=== PATIENT | female | born 1965 | race African-American/Black ===

== ENCOUNTER 2018-09-30 14:25 | Inpatient (IN) | payer OTHER ==
[2018-09-30 15:36] VITALS: BMI 23.4
--- NOTE | 2018-09-30 18:05 | HP ---
CIWA Score Nausea/Vomitin-No Nausea/No Vomiting Muscle Tremors: 4-Moderate,w/Arms Extend (Unrelated to gross shaking of arms, legs, and body) Anxiety: 1-Mildly Anxious Agitation: 4-Moderately Restless Paroxysmal Sweats: 3 (nreased facial moisture) Orientation: 1-Uncertain about Date Tacttile Disturbances: 0-None Auditory Disturbances: 0-None Visual Disturbances: 0-None Headache: 0-None Present CIWA-Ar Total Score: 13 - Admission Criteria [facility]ASAS Guidelines: Admission for Medically Managed Detox: Requires at least one of the followin. CIWA greater than 12 2. Seizures within the past 24 hours 3. Delirium tremens within the past 24 hours 4. Hallucinations within the past 24 hours 5. Acute intervention needed for co occurring medical disorder 6. Acute intervention needed for co occurring psychiatric disorder 7. Severe withdrawal that cannot be handled at a lower level of care (continued vomiting, continued diarrhea, abnormal vital signs) requiring intravenous medication and/or fluids 8. Patient presents the following: CIWA greater than 12 Admission Criteria Met: Admission criteria met Admission ROS [facility] Chief Complaint: Here for alcohol withdrawal. Allergies/Adverse Reactions: Allergies Allergy/AdvReac Type Severity Reaction Status Date / Time lisinopril Allergy Severe Swelling Verified 09/30/18 16:33 History of Present Illness: Here for alcohol detox. Alcohol use began at age 21. Cocaine use began at age 23. Nicotine use began at age 17. Hx: Hodgkins disease, which she states was confirmed by a blood test and for which she states is being given Seroquel and Olanzapine - States exhibited by shakes, twitching, and difficulty walking x 2 years. Being f/u by neurology at [facility]. Hx: HTN, Asthma w/COPD Denies hx seizures, blackouts, or overdoses. Patient Name: Fernanda Yen Date: 1965 Address: [address] [place] [address] Sex: Female Rx Written Rx Dispensed Drug Quantity Days Supply Prescriber Name 05/03/2018 05/04/2018 clonazepam 0.5 mg tablet 30 30 Neema Clark MD 02/03/2018 02/04/2018 clonazepam 0.5 mg tablet 30 30 Beto Lopez MD Patient Name: Fernanda Yen Date: 1965 Address: [address] [place] [id number] Sex: Female Rx Written Rx Dispensed Drug Quantity Days Supply Prescriber Name 02/01/2018 03/11/2018 clonazepam 0.5 mg tablet 30 15 Neema Clark MD 10/26/2017 10/26/2017 clonazepam 0.5 mg tablet 30 30 Neema Clark MD Patient Name: Fernanda Yen Date: 1965 Address: [address] [place] [address] Sex: Female Rx Written Rx Dispensed Drug Quantity Days Supply Prescriber Name 12/16/2017 12/16/2017 clonazepam 0.5 mg tablet 30 30 Jay Marks Exam Limitations: No Limitations - Ebola screening Have you traveled outside of the country in the last 21 days: No Have you had contact with anyone from an Ebola affected area: No Have you been sick,other than usual withdrawal symptoms: No Do you have a fever: No - Review of Systems Constitutional: Diaphoresis, Changes in sleep (States Seroquel puts to sleep) EENT: reports: Blurred Vision, Dental Problems (Dentures - chews and swallows okay) Respiratory: reports: Cough (Cough w/o chest pain or SOB) Cardiac: reports: No Symptoms Reported GI: reports: Indigestion (Occ acid indigestion) : reports: No Symptoms Reported Musculoskeletal: reports: No Symptoms Reported Integumentary: reports: No Symptoms Reported Neuro: reports: Tremors, Unsteady Gait, Other (Shakes, twitches r/t Hodgkins') Endocrine: reports: Increased Thirst Hematology: reports: No Symptoms Reported Psychiatric: reports: Judgement Intact, Agitated, Anxious, Depressed (Denies thoughts of harming self or others) Patient History - Patient Medical History Hx Asthma: Yes Hx Chronic Obstructive Pulmonary Disease (COPD): No Hx Cardiac Disorders: No Hx Hypertension: No Hx Seizures: No Hx Diabetes: No Hx Gastrointestinal Disorders: No Hx Genitourinary Disorders: No Hx Sexually Transmitted Disorders: No Hx Renal Disease (ESRD): No Hx Depression: No Hx Suicide Attempt: No Hx Schizophrenia: No - Patient Surgical History Past Surgical History: No - PPD History Previous Implant?: Yes Documented Results: Negative w/o proof Implanted On Prior [facility] Admission?: No PPD to be Administered?: Yes - Reproductive History Patient : No - Smoking Cessation Smoking history: Current every day smoker Have you smoked in the past 12 months: Yes Aproximately how many cigarettes per day: 4 Hx Chewing Tobacco Use: No Initiated information on smoking cessation: Yes 'Breaking Loose' booklet given: 09/30/18 - Substances Abused Alcohol Route: Oral Frequency: Daily Amount used: 5 shots of stephanie Age of first use: 21 Date of Last Use: 09/30/18 Cocaine Route: Inhalation Frequency: 1-2 times per week Amount used: $25 Age of first use: 23 Date of Last Use: 09/28/18 Admission Physical Exam S - Vital Signs Vital Signs: Vital Signs - 24 hr 09/30/18 15:34 Temperature 98.6 F Pulse Rate 108 H Respiratory 18 Rate Blood Pressure 105/57 L - Physical General Appearance: Yes: Nourished, Appropriately Dressed, Mild Distress, Tremorous, Sweating, Anxious HEENTM: Yes: EOMI, Hearing grossly Normal, Normocephalic, Normal Voice, SAMPSON, Pharynx Normal Respiratory: Yes: Chest Non-Tender, Lungs Clear, Normal Breath Sounds, No Respiratory Distress, Other (Cough productive of clear phglegm) Neck: Yes: No masses,lesions,Nodules, Supple Breast: Yes: Breast Exam Deferred Cardiology: Yes: S1, S2, Tachycardia, Irregular Abdominal: Yes: Non Tender, Soft, Increased Bowel Sounds, Protuberent ( Increased abdominal adiposity) Genitourinary: Yes: Within Normal Limits Back: Yes: Normal Inspection Musculoskeletal: Yes: Other (Generalized spasms and fasciulations of extremities. Gait unsteady) Extremities: Yes: Normal Capillary Refill, Non-Tender, Tremors (Hand and arm tremors, unrelated to gross shaking of arms, legs, and body) Neurological: Yes: Fully Oriented, Alert, Motor Strength 5/5, Other ( Generalized twitches, spasms and fasciulations of extremities.) Integumentary: Yes: Normal Color, Dry, Warm Lymphatic: Yes: Within Normal Limits - Diagnostic (1) Alcohol dependence with uncomplicated withdrawal Current Visit: Yes Status: Acute (2) Nicotine dependence, uncomplicated Current Visit: Yes Status: Chronic Qualifiers: Nicotine product type: cigarettes Qualified Code(s): F17.210 - Nicotine dependence, cigarettes, uncomplicated (3) Hypertension Current Visit: Yes Status: Chronic Qualifiers: Hypertension type: unspecified Qualified Code(s): I10 - Essential (primary ) hypertension (4) COPD with asthma Current Visit: Yes Status: Chronic (5) Fasciculation Current Visit: Yes Status: Chronic Comment: Fasiculations, twitching, and spasm associated with Hodgkin's Disease. Cleared for Admission [facility] - Detox or Rehab [facility] Level of Care: Medically Managed Detox Regimen/Protocol: Librium [facility] Breath Alcohol Content Breath Alcohol Content: 0 Urine Pregancy Test - Result Urine Test Results: Negative- NO Line Present Urine Drug Screen - Results Drug Screen Negative: Yes
[2018-09-30] MEDS ORDERED: chlordiazePOXIDE HCL 25 MG CAPSULE PO PRN (18:50)
[2018-09-30] MEDS ORDERED: NICOTINE POLACRILEX 2 MG GUM BC PRN (18:51)
[2018-09-30] MEDS ORDERED: LOPERAMIDE HCL 2 MG CAPSULE PO PRN (18:51)
[2018-09-30] MEDS ORDERED: ACETAMINOPHEN 325 MG TABLET (FP) PO PRN (18:51)
[2018-09-30] MEDS ORDERED: MAGNESIUM HYDROX 2400MG/30ML ORAL SUSPENSION 30 ML CUP PO PRN (18:51)
[2018-09-30] MEDS ORDERED: P-EPHED 60MG/TRIPROLIDI 2.5MG TABLET PO PRN (18:51)
[2018-09-30] MEDS ORDERED: MAG HYDROX/AL HYDROX/SIMETH 30 ML UNIT-DOSE CUP PO PRN (18:51)
[2018-09-30] MEDS ORDERED: MENTHOL/PHENOL 1 EACH UD MM PRN (18:51)
[2018-09-30] MEDS ORDERED: MAGNESIUM CITRATE 300 ML BOTTLE PO PRN (18:51)
[2018-09-30] MEDS ORDERED: guaiFENesin 200 MG/10 ML 10 ML UNIT-DOSE CUPS PO PRN (18:57)
[2018-09-30] MEDS ORDERED: ALBUTEROL SO4 0.083% IH SOL 2.5 MG/3 ML VIAL.NEB. NEB PRN (18:58)
[2018-09-30] MEDS ORDERED: chlordiazePOXIDE HCL 10 MG CAPSULE PO PRN (19:28)
[2018-09-30] MEDS: BUDESONIDE/FORMETEROL FUMARATE 160/4.5 mcg INHALER IH SCH (21:52)
[2018-09-30] MEDS: THIAMINE HCL 100 MG TABLET (FP) PO SCH (21:55)
[2018-09-30] MEDS ORDERED: MELATONIN 5 MG TABLETS PO PRN (22:00)
[2018-09-30] MEDS: chlordiazePOXIDE HCL 25 MG CAPSULE PO SCH (22:02)
[2018-09-30] MEDS: IBUPROFEN 400 MG TABLET (FP) PO PRN (22:34)
[2018-10-01] MEDS: chlordiazePOXIDE HCL 25 MG CAPSULE PO SCH ×3 (06:04→17:12)
[2018-10-01] MEDS: IBUPROFEN 400 MG TABLET (FP) PO PRN (06:05)
[2018-10-01] MEDS: BUDESONIDE/FORMETEROL FUMARATE 160/4.5 mcg INHALER IH SCH ×2 (11:01→22:15)
[2018-10-01] MEDS: PRENATAL VITAMINS W/ FOLIC ACID TABLET (FP) PO SCH (11:02)
[2018-10-01] MEDS: HYDROCHLOROTHIAZIDE 25 MG TABLET (FP) PO SCH (11:02)
[2018-10-01] MEDS: NICOTINE 14 MG/24 HOURS TOPICAL PATCH TD SCH (11:02)
[2018-10-01 11:10] LABS: MCH 30.8 pg (25.7-33.7); MCHC 34.4 g/dl (32.0-36.0); MEAN CELL VOLUME 89.6 fl (80-96); MEAN PLT VOLUME 8.1 fl (7.5-11.1); PLATELET COUNT 284 K/MM3 (134-434); RBC 4.24 M/mm3 (3.60-5.2); RDW 12.9 % (11.6-15.6); WHITE BLOOD COUNT 5.2 K/mm3 (4.0-10.0)
[2018-10-01 11:30] LABS: ALK PHOS 119 U/L (45-117); ANION GAP 4 MMOL/L (8-16); BILIRUBIN,TOTAL 0.8 mg/dL (0.2-1); BLOOD UREA NITROGEN 15 mg/dL (7-18); CALCIUM 8.7 mg/dL (8.5-10.1); CHLORIDE 104 mmol/L (98-107); CO2 30 mmol/L (21-32); CREATININE 0.7 mg/dL (0.55-1.3); GLUCOSE,RANDOM 87 mg/dL (74-106); POTASSIUM 4.4 mmol/L (3.5-5.1); SGOT/AST 13 U/L (15-37); SGPT/ALT 18 U/L (13-61); SODIUM 138 mmol/L (136-145); TOT PROT 7.2 g/dl (6.4-8.2)
--- NOTE | 2018-10-01 13:24 | EKG ---
Test Reason : Blood Pressure : / mmHG Vent. Rate : 089 BPM Atrial Rate : 089 BPM P-R Int : 126 ms QRS Dur : 074 ms QT Int : 376 ms P-R-T Axes : 052 059 016 degrees QTc Int : 457 ms NORMAL SINUS RHYTHM POSSIBLE LEFT ATRIAL ENLARGEMENT LEFT VENTRICULAR HYPERTROPHY ABNORMAL ECG NO PREVIOUS ECGS AVAILABLE Confirmed by JOSE TORRES MD ([id number]) on 10/01/2018 1:24:30 PM Referred By: Confirmed By:JOSE TORRES MD
--- NOTE | 2018-10-01 14:00 | PN ---
S CIWA - CIWA Score Nausea/Vomitin Muscle Tremors: 2 Anxiety: 2 Agitation: 2 Paroxysmal Sweats: 2 Orientation: 0-Oriented Tacttile Disturbances: 2-Mild Itch/Numbness/Burn Auditory Disturbances: 2-Mild Harshness/Frighten Visual Disturbances: 1-Very Mild Sensitivity Headache: 1-Very Mild CIWA-Ar Total Score: 16 [facility] Progress Note (SOAP) Subjective: Sweats, tremors,interrupted sleep and anxiety Objective: 10/01/18 13:59 Vital Signs 10/01/18 10/01/18 06:00 09:50 Temperature 98.2 F 98.9 F Pulse Rate 88 100 H Respiratory 22 H 19 Rate Blood Pressure 141/64 124/81 Laboratory Last Values WBC 5.2 K/mm3 (4.0-10.0) 10/01/18 07:50 RBC 4.24 M/mm3 (3.60-5.2) 10/01/18 07:50 Hgb 13.0 GM/dL (10.7-15.3) 10/01/18 07:50 Hct 38.0 % (32.4-45.2) 10/01/18 07:50 MCV 89.6 fl (80-96) 10/01/18 07:50 MCH 30.8 pg (25.7-33.7) 10/01/18 07:50 MCHC 34.4 g/dl (32.0-36.0) 10/01/18 07:50 RDW 12.9 % (11.6-15.6) 10/01/18 07:50 Plt Count 284 K/MM3 (134-434) 10/01/18 07:50 MPV 8.1 fl (7.5-11.1) 10/01/18 07:50 Sodium 138 mmol/L (136-145) 10/01/18 07:50 Potassium 4.4 mmol/L (3.5-5.1) 10/01/18 07:50 Chloride 104 mmol/L (98-107) 10/01/18 07:50 Carbon Dioxide 30 mmol/L (21-32) 10/01/18 07:50 Anion Gap 4 MMOL/L (8-16) L 10/01/18 07:50 BUN 15 mg/dL (7-18) 10/01/18 07:50 Creatinine 0.7 mg/dL (0.55-1.3) 10/01/18 07:50 Creat Clearance w eGFR > 60 (>60) 10/01/18 07:50 Random Glucose 87 mg/dL (74-106) 10/01/18 07:50 Calcium 8.7 mg/dL (8.5-10.1) 10/01/18 07:50 Total Bilirubin 0.8 mg/dL (0.2-1) 10/01/18 07:50 AST 13 U/L (15-37) L 10/01/18 07:50 ALT 18 U/L (13-61) 10/01/18 07:50 Alkaline Phosphatase 119 U/L (45-117) H 10/01/18 07:50 Total Protein 7.2 g/dl (6.4-8.2) 10/01/18 07:50 Albumin 4.0 g/dl (3.4-5.0) 10/01/18 07:50 RPR Titer Nonreactive (NONREACTIVE) 10/01/18 07:50 Labs noted-no panic values Assessment: 10/01/18 14:00 Withdrawal sx Plan: Continue detox
--- NOTE | 2018-10-01 15:25 | PN ---
S Progress Note Note: Patient requesting home meds; hydrochlorothiazide and ventolin inhaler. BPs have been suboptimal, meds ordered.
[2018-10-01] MEDS: ALBUTEROL SO4 8 GM HFA INHALER IH PRN (17:20)
[2018-10-01] MEDS: THIAMINE HCL 100 MG TABLET (FP) PO SCH (22:15)
[2018-10-01] MEDS: chlordiazePOXIDE 5 MG CAPSULE PO SCH (22:15)
[2018-10-02] MEDS: chlordiazePOXIDE 5 MG CAPSULE PO SCH ×4 (05:25→22:16)
[2018-10-02] MEDS: ALBUTEROL SO4 8 GM HFA INHALER IH PRN (08:03)
[2018-10-02] MEDS: PRENATAL VITAMINS W/ FOLIC ACID TABLET (FP) PO SCH (10:36)
[2018-10-02] MEDS: HYDROCHLOROTHIAZIDE 25 MG TABLET (FP) PO SCH ×2 (10:36→10:41)
[2018-10-02] MEDS: NICOTINE 14 MG/24 HOURS TOPICAL PATCH TD SCH (10:37)
[2018-10-02] MEDS: BUDESONIDE/FORMETEROL FUMARATE 160/4.5 mcg INHALER IH SCH ×2 (10:37→22:17)
--- NOTE | 2018-10-02 17:47 | PN ---
S CIWA - CIWA Score Nausea/Vomitin-Mild Nausea/No Vomiting Muscle Tremors: 3 Anxiety: 3 Agitation: 3 Paroxysmal Sweats: 3 Orientation: 0-Oriented Tacttile Disturbances: 0-None Auditory Disturbances: 0-None Visual Disturbances: 0-None Headache: 0-None Present CIWA-Ar Total Score: 13 S Progress Note (SOAP) Subjective: Anxious, restless Objective: 10/02/18 17:46 Last Vital Signs Temp Pulse Resp BP Pulse Ox 98.3 F 78 18 124/77 10/02/18 17:40 10/02/18 17:40 10/02/18 17:40 10/02/18 17:40 Laboratory Tests 10/01/18 10/01/18 10/01/18 07:50 07:50 07:50 WBC 5.2 RBC 4.24 Hgb 13.0 Hct 38.0 MCV 89.6 MCH 30.8 MCHC 34.4 RDW 12.9 Plt Count 284 MPV 8.1 Sodium 138 Potassium 4.4 Chloride 104 Carbon Dioxide 30 Anion Gap 4 L BUN 15 Creatinine 0.7 Creat Clearance w eGFR > 60 Random Glucose 87 Calcium 8.7 Total Bilirubin 0.8 AST 13 L ALT 18 Alkaline Phosphatase 119 H Total Protein 7.2 Albumin 4.0 RPR Titer Nonreactive Labs reviewed Assessment: 10/02/18 17:46 Withdrawal symptoms Plan: Continue detox Encouraged PO water hydration
[2018-10-02] MEDS: THIAMINE HCL 100 MG TABLET (FP) PO SCH (22:17)
[2018-10-03] MEDS: chlordiazePOXIDE 5 MG CAPSULE PO SCH ×4 (05:33→22:01)
[2018-10-03] MEDS: HYDROCHLOROTHIAZIDE 25 MG TABLET (FP) PO SCH ×2 (10:06→10:07)
[2018-10-03] MEDS: PRENATAL VITAMINS W/ FOLIC ACID TABLET (FP) PO SCH (10:06)
[2018-10-03] MEDS: BUDESONIDE/FORMETEROL FUMARATE 160/4.5 mcg INHALER IH SCH ×2 (10:06→22:00)
[2018-10-03] MEDS: NICOTINE 14 MG/24 HOURS TOPICAL PATCH TD SCH (10:07)
[2018-10-03] MEDS: ALBUTEROL SO4 8 GM HFA INHALER IH PRN ×2 (10:08→22:01)
--- NOTE | 2018-10-03 12:31 | PN ---
[facility] Progress Note (SOAP) Subjective: feeling better little sweats Objective: 10/03/18 12:30 Vital Signs Temperature 97.9 F 10/03/18 09:31 Pulse Rate 99 H 10/03/18 09:31 Respiratory Rate 16 10/03/18 09:31 Blood Pressure 105/60 10/03/18 09:31 O2 Sat by Pulse Oximetry (%) aaox3 ambulating no acute distress Assessment: 10/03/18 12:30 mild withdrawal sx Plan: continue detox increase fluids d/c in am
[2018-10-03] MEDS: THIAMINE HCL 100 MG TABLET (FP) PO SCH (22:01)
[2018-10-04] MEDS: chlordiazePOXIDE 5 MG CAPSULE PO SCH (05:41)
[2018-10-04] MEDS: ALBUTEROL SO4 8 GM HFA INHALER IH PRN (05:53)
[2018-10-04] MEDS: PRENATAL VITAMINS W/ FOLIC ACID TABLET (FP) PO SCH (09:03)
[2018-10-04] MEDS: HYDROCHLOROTHIAZIDE 25 MG TABLET (FP) PO SCH ×2 (09:03→09:04)
[2018-10-04] MEDS: BUDESONIDE/FORMETEROL FUMARATE 160/4.5 mcg INHALER IH SCH (09:03)
--- NOTE | 2018-10-04 09:05 | DS ---
[facility] Detox Discharge Summary Admission Date: 09/30/18 Discharge Date: 10/04/18 - History Present History: Alcohol Dependence, Cocaine Dependence - Physical Exam Results Vital Signs: Vital Signs Temperature 96.9 F L 10/04/18 06:21 Pulse Rate 79 10/04/18 06:21 Respiratory Rate 18 10/04/18 06:21 Blood Pressure 117/48 L 10/04/18 06:21 O2 Sat by Pulse Oximetry (%) - Treatment Hospital Course: Detox Protocol Followed, Detoxed Safely, Responded well, Discharged Condition Good, Rehab Referral Accepted - Medication Discharge Medications: Ambulatory Orders Budesonide/Formeterol Fumarate [SYMBICORT 160/4.5mcg -] 1 inh PO BID 09/30/18 Hydrochlorothiazide [Hctz -] 25 mg PO DAILY 09/30/18 Olanzapine [Zyprexa] 10 mg PO HS 09/30/18 Quetiapine Fumarate [Seroquel -] 25 mg PO HS 09/30/18 - Diagnosis (1) Alcohol dependence with uncomplicated withdrawal Current Visit: Yes Status: Chronic (2) COPD with asthma Current Visit: Yes Status: Chronic (3) Cocaine abuse Current Visit: Yes Status: Chronic (4) Fasciculation Current Visit: Yes Status: Chronic (5) Hypertension Current Visit: Yes Status: Chronic Qualifiers: Hypertension type: unspecified Qualified Code(s): I10 - Essential (primary ) hypertension (6) Nicotine dependence, uncomplicated Current Visit: Yes Status: Chronic Qualifiers: Nicotine product type: cigarettes Qualified Code(s): F17.210 - Nicotine dependence, cigarettes, uncomplicated - AMA Did Patient Leave Against Medical Advice: No ([facility] out patient rehab)
[2018-10-04 09:16] VITALS: BP 145/58; PULSE 101; TEMP 97.9
[2018-10-04] MEDS: NICOTINE 14 MG/24 HOURS TOPICAL PATCH TD SCH (11:13)
== END 2018-10-04 10:40 | disposition home or self-care (01) | DRG 774 ==
LOC: YASAS 14:25 → Y6N 19:42
PROVIDERS: ADMIT Neuromusculoskeletal Medicine & OMM; ATTEND Neuromusculoskeletal Medicine & OMM
PROC: HZ2ZZZZ Detoxification Services for Substance Abuse Treatment (ICD-10-PCS; principal; 2018-09-30)
DX: F10.230 Alcohol dependence with withdrawal, uncomplicated (principal); F14.10 Cocaine abuse, uncomplicated; F17.210 Nicotine dependence, cigarettes, uncomplicated; I10 Essential (primary) hypertension; J44.9 Chronic obstructive pulmonary disease, unspecified; R25.3 Fasciculation; R00.0 Tachycardia, unspecified
CPT/HCPCS: 36415; 80053; 85027; 86593; 93005; 93010